=== PATIENT | female | born 1990 | race Caucasian/White ===

== ENCOUNTER 2019-04-13 10:33 | Emergency (ER) | payer MEDICAID ==
--- NOTE | 2019-04-13 11:14 | ED.PDOC ---
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 Stated had done lifting stuff since they are in the process of moving from [place] to [facility]. Timing/Duration: this morning Quality: moderate, other - no abdominal pain Activites at Onset: physical activity Prior abdominal problems: none Sexual intercourse history: greater than 2 months ago, single partner Improving Factors: nothing Worsening Factors: nothing Associated Symptoms: denies symptoms Allergies/Adverse Reactions: Allergies NO KNOWN ALLERGY Allergy (Verified 04/13/19 10:46) Home Medications: Ambulatory Orders Fluoxetine HCl [Prozac] 40 mg PO DAILY 04/13/19 Gabapentin 600 mg PO PRN 04/13/19 Review of Systems - Review of Systems Constitutional: States: no symptoms reported EENTM: States: no symptoms reported Respiratory: States: no symptoms reported Cardiology: States: no symptoms reported Gastrointestinal/Abdominal: States: no symptoms reported Genitourinary: States: other - vaginal spotting Musculoskeletal: States: no symptoms reported Skin: States: no symptoms reported Neurological: States: no symptoms reported Endocrine: States: no symptoms reported Hematologic/Lymphatic: States: no symptoms reported All other Systems: Reviewed and Negative, No Change from Baseline Past Medical History (General) - Patient Medical History Hx Stroke: No Hx Congestive Heart Failure: No Hx Diabetes: No Surgical History: no surgical history - Vaccination History Hx Influenza Vaccination: No - Social History Hx Tobacco Use: Yes - Female History Patient is a Female of Child Bearing Age (10 -59 yrs old): Yes Hx Last Menstrual Period: 01/01/19 Patient : Yes Expected Date of Delivery:: 10/10/19 Hx Gestational Age: 14 Family Medical History - Family History Mother Family History: Unknown Living Status: Unknown Physical Exam - Physical Exam General Appearance: Alert, Comfortable, No apparent distress Eyes, Ears, Nose, Throat Exam: PERRL/EOMI, normal ENT inspection Neck: non-tender, normal inspection Cardiovascular/Respiratory: regular rate, rhythm, no M/R/G, normal peripheral pulses, normal breath sounds Gastrointestinal/Abdominal: normal bowel sounds, non tender, soft, other - FHT- 140's Pelvic Exam: other - deferred she will call up OB for check up Extremity: no pedal edema, no calf tenderness Neurologic: alert, oriented x 3 Skin Exam: normal color, warm/dry Progress - Progress Progress: 04/13/19 11:20 Vital Signs - 8 hr 04/13/19 10:42 Temperature 98.5 F Pulse Rate [ 79 Right Brachial] Respiratory 20 Rate Blood Pressure 111/54 [Right Arm] O2 Sat by Pulse 98 Oximetry - Results/Orders Results/Orders: Laboratory Results - last 24 hr 04/13/19 04/13/19 04/13/19 11:20 11:39 11:39 WBC 7.4 RBC 4.04 L Hgb 13.2 Hct 38.0 MCV 94.0 MCH 32.6 H MCHC 34.7 RDW 12.9 Plt Count 195 MPV 8.8 Absolute Neuts (auto) 4.50 Absolute Lymphs (auto) 1.90 Absolute Monos (auto) 0.60 Absolute Eos (auto) 0.20 Absolute Basos (auto) 0.10 Neutrophils % 61.4 Lymphocytes % 26.4 Monocytes % 8.2 Eosinophils % 3.1 Basophils % 0.9 Beta HCG, Quant 51099.0 H Patient ABO/Rh O POSITIVE Discuss all test results with patient. Departure - Departure Clinical Impression: Vaginal spotting Qualifiers: Weeks of gestation: 14 weeks Qualified Code(s): Z3A.14 - 14 weeks gestation of Time of Disposition: 12:45 Disposition: Discharge to Home or Self Care Condition: Good Departure Forms: ED Discharge - Pt. Copy, Patient Portal Self Enrollment Instructions: DI for Vaginal Bleeding During Referrals: CARLOS CAMARENA [Primary Care Provider] - 1-2 Weeks Home Medications: Ambulatory Orders Fluoxetine HCl [Prozac] 40 mg PO DAILY 04/13/19 Gabapentin 600 mg PO PRN 04/13/19 Additional Instructions: Return to emergency room as needed;Need to call your OB in [facility] if symptoms worsens;continue with vitamins and rest of home medications
[2019-04-13 13:03] VITALS: BP 117/63; TEMP 96.8; O2SAT 99
== END 2019-04-13 13:02 | disposition home or self-care (01) ==
LOC: ER 10:33
DX: O26.852 Spotting complicating pregnancy, second trimester (principal); Z3A.14 14 weeks gestation of pregnancy; Z87.891 Personal history of nicotine dependence; Z79.899 Other long term (current) drug therapy

== ENCOUNTER 2019-08-03 14:26 | Emergency (ER) | payer MEDICAID ==
[2019-08-03] MEDS ORDERED: diazePAM INJ 10 MG/2 ML SYG IV ONE (15:25)
--- NOTE | 2019-08-03 15:46 | ED.PDOC ---
History of Present Illness - General Chief Complaint: Behavioral / Psych Stated Complaint: panic attack Time Seen by Provider: 08/03/19 15:24 Source: patient, RN notes reviewed, Vital Signs reviewed, family - father Exam Limitations: no limitations - History of Present Illness Initial Comments: . Timing/Duration: 1-3 hours Severity: severe Improving Factors: nothing Worsening Factors: medication Associated Symptoms: nausea/vomiting, other Allergies/Adverse Reactions: Allergies NO KNOWN ALLERGY Allergy (Verified 04/13/19 10:46) Home Medications: Ambulatory Orders Multivit-Min W/Fe-FA [Pre- Formula] 1 tab PO DAILY 08/03/19 diazePAM [Valium] 2 mg PO BID #8 tab 08/03/19 Review of Systems - Review of Systems Constitutional: States: no symptoms reported EENTM: States: no symptoms reported Respiratory: States: no symptoms reported Cardiology: States: no symptoms reported Gastrointestinal/Abdominal: States: no symptoms reported Genitourinary: States: no symptoms reported Musculoskeletal: States: no symptoms reported Skin: States: no symptoms reported Neurological: States: see HPI, anxiety Endocrine: States: no symptoms reported Hematologic/Lymphatic: States: no symptoms reported All other Systems: Reviewed and Negative Past Medical History (General) - Patient Medical History Hx Stroke: No Hx Congestive Heart Failure: No Hx Diabetes: No Hx Other - free text: history of anxiety and possible diagnosis of bipolar. Surgical History: cholecystectomy - Vaccination History Hx Tetanus, Diphtheria Vaccination: Yes Hx Influenza Vaccination: Yes - Social History Hx Tobacco Use: Yes - Female History Hx Last Menstrual Period: 01/01/19 Patient : Yes Expected Date of Delivery:: 10/10/19 Hx Gestational Age: 14 Family Medical History - Family History Mother Family History: Unknown Living Status: Unknown Physical Exam - Physical Exam General Appearance: Alert, Anxious, Well Developed, Well Groomed, Well Hydrated, Well Nourished Eye Exam: bilateral normal Ears, Nose, Throat: hearing grossly normal, normal ENT inspection, normal pharynx Neck: non-tender, full range of motion, supple, normal inspection Respiratory: chest non-tender, lungs clear, normal breath sounds, no respiratory distress, no accessory muscle use Cardiovascular/Chest: normal peripheral pulses, regular rate, rhythm, no edema, no gallop, no JVD, tachycardia Gastrointestinal/Abdominal: normal bowel sounds, non tender, soft, other - gravid abdomen approximately 30 cm consistent with dates. 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 08/03/19 16:02 patient is improved after IV Valium. Decision to give Valium as a single dose IV was made based upon the literature review showing the D efficacy in the third trimester as long as she is not within 2 weeks of delivery. Discussed the use of benzodiazepines with the patient prior to giving her Valium and she voices understanding and agreement with the plan of care and is well aware of the risks and benefits of this course of treatment. 4, 5 mg tablets of Valium, 1 per day for the next 4 days so that she can get through to seen her PRESCHOOL DIRECTOR who can start her on medication.discussed plan of care with the patient and she voices understanding and agreement. Wicho Mendoza M.D. #1 Departure - Departure Clinical Impression: Panic attack Withdrawal from benzodiazepine Qualifiers: Complication of substance-induced condition: uncomplicated Qualified Code(s): F13.230 - Sedative, hypnotic or anxiolytic dependence with withdrawal, uncomplicated Qualifiers: Weeks of gestation: 30 weeks Qualified Code(s): Z3A.30 - 30 weeks gestation of Time of Disposition: 16:08 Disposition: Discharge to Home or Self Care Condition: Good Departure Forms: ED Discharge - Pt. Copy, Patient Portal Self Enrollment Instructions: Panic Disorder (DC) Referrals: CARLOS CAMARENA [Primary Care Provider] - 1-5 Days Prescriptions: diazePAM [Valium] 2 mg PO BID #8 tab Home Medications: Ambulatory Orders Multivit-Min W/Fe-FA [Pre-Monalisa Formula] 1 tab PO DAILY 08/03/19 diazePAM [Valium] 2 mg PO BID #8 tab 08/03/19
[2019-08-03 16:28] VITALS: BP 117/88; TEMP 98; O2SAT 99
== END 2019-08-03 16:28 | disposition home or self-care (01) ==
LOC: ER 14:26
DX: O99.343 Other mental disorders complicating pregnancy, third trimester (principal); F41.0 Panic disorder [episodic paroxysmal anxiety]; O99.323 Drug use complicating pregnancy, third trimester; F13.230 Sedative, hypnotic or anxiolytic dependence with withdrawal, uncomplicated; Z3A.30 30 weeks gestation of pregnancy
CPT/HCPCS: 93005; J2060; J3360

== ENCOUNTER 2019-08-04 02:28 | Emergency (ER) | payer MEDICAID ==
[2019-08-04 02:49] VITALS: O2SAT 98
--- NOTE | 2019-08-04 03:01 | ED.PDOC ---
History of Present Illness - General Chief Complaint: Cardiovascular Problem Stated Complaint: chest pain Time Seen by Provider: 08/04/19 02:58 Source: patient, RN notes reviewed, Vital Signs reviewed, old records Exam Limitations: no limitations - History of Present Illness Initial Comments: patient is a 28-year-old white female who presents with complaints of chest pain. was seen by me earlier this evening for panic and anxiety attack. Patient has been out of her meds for a couple of weeks. On the couch when this occurred. She denies any shortness of breath, nausea, vomiting, diaphoresis. Other than the chest pain and anxiety. Nothing seems to trigger the panic attacks or chest pain and nothing seems to make it better or worse. There is not an exertional component to the chest pain. Timing/Duration: 1-3 hours Severity/Quality: mild, sharp, stabbing Location: other - left lateral chest wall. Chest Pain Radiation: no radiation Activities at Onset: emotional stress Prior Chest Pain/Cardiac Workup: no prior chest pain, no prior cardiac workup Improving Factors: nothing Worsening Factors: nothing Nitro Today/Relief: no nitro taken today Aspirin Treatment Today: no aspirin today Allergies/Adverse Reactions: Allergies NO KNOWN ALLERGY Allergy (Verified 04/13/19 10:46) Home Medications: Ambulatory Orders Multivit-Min W/Fe-FA [Pre-Monalisa Formula] 1 tab PO DAILY 08/03/19 diazePAM [Valium] 2 mg PO BID #8 tab 08/03/19 Review of Systems - Review of Systems Constitutional: States: no symptoms reported EENTM: States: no symptoms reported Respiratory: States: no symptoms reported Cardiology: States: chest pain Gastrointestinal/Abdominal: States: no symptoms reported Genitourinary: States: no symptoms reported Musculoskeletal: States: no symptoms reported Skin: States: no symptoms reported Neurological: States: see HPI, anxiety Endocrine: States: no symptoms reported Hematologic/Lymphatic: States: no symptoms reported All other Systems: Reviewed and Negative Past Medical History (General) - Patient Medical History Hx Stroke: No Hx Congestive Heart Failure: No Hx Diabetes: No Surgical History: cholecystectomy - Vaccination History Hx Tetanus, Diphtheria Vaccination: Yes Hx Influenza Vaccination: Yes Hx Pneumococcal Vaccination: No - Social History Hx Tobacco Use: Yes Cigarettes Packs Per Day: 2 Hx Chewing Tobacco Use: No Hx Alcohol Use: No Hx Substance Use: No Hx Substance Use Treatment: No Hx Depression: Yes Feels Threatened In Home Enviroment: No Feels Threatened In a Relationship: No Hx Physical Abuse: No Hx Emotional Abuse: No Hx Suspected Abuse: No - Female History Patient is a Female of Child Bearing Age (10 -59 yrs old): Yes Hx Last Menstrual Period: 01/01/19 Patient : Yes Expected Date of Delivery:: 09/25/19 Hx Gestational Age: 30 - Triage Comment ED Triage Comment: The patient was in the ER the day before for a severe anxiety attack, She advised that at around 2100 that she began to have pain under her left breast that radiated to her left side. She was not tender to palpation. Family Medical History - Family History Mother Family History: Unknown Living Status: Unknown Physical Exam - Physical Exam General Appearance: Anxious, Well Developed, Well Groomed, Well Hydrated, Well Nourished Eyes, Ears, Nose, Throat Exam: PERRL/EOMI, normal ENT inspection, pharynx normal Neck: non-tender, full range of motion, supple Respiratory: chest non-tender, lungs clear, normal breath sounds, no respiratory distress Cardiovascular/Chest: normal peripheral pulses, regular rate, rhythm, no edema, no gallop, no JVD, no murmur, other - no reproducible chest wall pain Gastrointestinal/Abdominal: normal bowel sounds, non tender, soft, other - gravid abdomen approximately 30 cm consistent with dates. 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 Skin Exam: normal color, warm/dry Lymphatic: no adenopathy Progress - Progress Progress: eventual diagnosis: Anxiety attack, chest wall pain, acute SD, unstable angina among others. 08/04/19 03:05 I have provided patient with reassurance. EKG is otherwise normal except for sinus tachycardia. Highly unlikely to be cardiac in nature. I suspect this is the patient's anxiety/panic disorder. Plan discharge home with follow-up with her OB on Monday for further care of her anxiety disorder and refilling of her medications. Discussed plan of care with the patient and she ices understanding aement. Wicho Mendoza M.D. #[id number] - Results/Orders Results/Orders: EKG performed on 04 August 2019 at 0247 hrs.: Sinus tachycardia at 123 m/m, possible left atrial enlargement, ST or T wave changes, otherwise normal EKG. No comparison EKGs. Departure - Departure Clinical Impression: Chest pain due to psychological stress, Panic attack as reaction to stress Time of Disposition: 03:11 Disposition: Discharge to Home or Self Care Condition: Good Departure Forms: ED Discharge - Pt. Copy, Patient Portal Self Enrollment Instructions: DI for Chest Pain, Anxiety, Adult (DC) Referrals: CARLOS CAMARENA [Primary Care Provider] - 1-5 Days Home Medications: Ambulatory Orders Multivit-Min W/Fe-FA [Pre- Formula] 1 tab PO DAILY 08/03/19 diazePAM [Valium] 2 mg PO BID #8 tab 08/03/19
[2019-08-04 03:20] VITALS: BP 136/93
[2019-08-04 03:30] VITALS: TEMP 97.4
== END 2019-08-04 03:16 | disposition home or self-care (01) ==
LOC: ER 02:28
DX: O99.89 Other specified diseases and conditions complicating pregnancy, childbirth and the puerperium (principal); R07.89 Other chest pain; O99.340 Other mental disorders complicating pregnancy, unspecified trimester; F41.0 Panic disorder [episodic paroxysmal anxiety]; Z73.3 Stress, not elsewhere classified; R00.0 Tachycardia, unspecified; F32.9 Major depressive disorder, single episode, unspecified; Z87.891 Personal history of nicotine dependence; Z3A.00 Weeks of gestation of pregnancy not specified

== ENCOUNTER 2020-01-17 22:22 | Emergency (ER) | payer SELFPAY ==
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
[2020-01-18 02:04] VITALS: BP 129/83; TEMP 97.3
[2020-01-18 03:05] VITALS: O2SAT 94
== END 2020-01-18 03:17 ==
LOC: ER 22:22
DX: F33.2 Major depressive disorder, recurrent severe without psychotic features (principal); M54.2 Cervicalgia; S50.311A Abrasion of right elbow, initial encounter; S00.511A Abrasion of lip, initial encounter; F17.200 Nicotine dependence, unspecified, uncomplicated; Y04.2XXA Assault by strike against or bumped into by another person, initial encounter; Y92.9 Unspecified place or not applicable